=== PATIENT | male | born 1965 | race Caucasian/White ===

== ENCOUNTER 2024-09-25 16:08 | Emergency (ER) | payer BC ==
[~2024-09-25] VITALS: Ht 180.3 cm; Wt 82.0 kg
[2024-09-25 16:27] VITALS: O2SAT 99
[2024-09-25 18:34] VITALS: BP 138/90; PULSE 68; RESP 16; TEMP 36.9; O2SAT 100
== END 2024-09-25 18:36 | disposition home or self-care (01) ==
LOC: ER 16:08
DX: S00.81XA Abrasion of other part of head, initial encounter (principal); S09.90XA Unspecified injury of head, initial encounter; I10 Essential (primary) hypertension; Z88.5 Allergy status to narcotic agent; W19.XXXA Unspecified fall, initial encounter; Y93.89 Activity, other specified; Y92.89 Other specified places as the place of occurrence of the external cause; Y99.8 Other external cause status
CPT/HCPCS: 99282